=== PATIENT | female | born 1995 | race Caucasian/White ===

== ENCOUNTER 2017-06-30 10:39 | Outpatient (CLI) | payer OTHER ==
--- NOTE | 2017-06-30 12:09 | ULT ---
ULTRASOUND OB COMPLETE STANDARD: HISTORY: followup. COMPARISON: None. FINDINGS: Single viable intrauterine with average ultrasound age 22 weeks 3 days, estimated date of d elivery is 10/24/17. This is concordant with the clinical age. Estimated weight is 1 pound 4 ounces, 71st percentile. Biparietal diameter: 22 weeks 6 days, 5.82 cm. Head circumference: 22 weeks 3 days, 21.2 cm. Abdominal circumference: 22 weeks 6 days, 17.9 cm. Femur length: 23 weeks 2 days, 4.11 cm. The lateral ventricles, sternum, cerebellum, spine, sacrum, 4-chamber heart, stomach, kidneys, and ce rebellum are normal. The nose and lips are not well seen. The color Doppler measurement peak systolic velocity 22.9 cm/s. End-diastolic velocity 8.8 cm/s, sys tolic/diastolic ratio 0.6. Placenta is anterior. The position is vertex. Cervix is not well seen. The heart rate is documented at 175 b.p.m. IMPRESSION: Single viable intrauterine with average ultrasound age 22 week 3 days with estimated date o f delivery 10/24/17. The biometry appears normal as well as the survey. POS: [facility]
== END 2017-06-30 10:40 | disposition home or self-care (01) ==
LOC: ULT 10:39
PROVIDERS: ATTEND Family Medicine
DX: Z34.92 Encounter for supervision of normal pregnancy, unspecified, second trimester (principal); Z3A.22 22 weeks gestation of pregnancy
CPT/HCPCS: 76805

== ENCOUNTER 2017-09-06 22:07 | Day surgery (SDC) | payer OTHER ==
[2017-09-06 22:45] VITALS: BMI 25.7
--- NOTE | 2017-09-06 23:10 | PDOC.LDHP ---
Labor and Delivery H&P Chief complaint: abdominal pain HPI: 22 y/o G1 at 31w4d, patient of Andrew Singh, presents with abdominal pain worsening over the last 2 days. Unsure if contractions or other type of pain but feels occasional, irregular tightening. +dysuria, frequency, urgency. Denies VB, LOF, or decreased FM. ROS neg for HEENT, CV, pulm, GI, , neuro, psych, skin, musculoskeletal, or constitutional symptoms other than mentioned above. OB History Details: First Past Medical History: None Current medications: pre-dejan vitamins Previous surgical history: none Allergies/Adverse Reactions: Allergies Allergy/AdvReac Type Severity Reaction Status Date / Time No Known Allergies Allergy Verified 09/06/17 22:40 Social history: none - Physical Exam Vital signs reviewed and normal: yes General: NAD, resting Lungs: nonlabored breathing Abdomen: gravid Extremeties: no edema FHT: category 1 (130s, mod variability, + accels, no decels) Holiday contractions every: irregular, q 8-12 mins - Vaginal Exam cm dilated: 0 Effacement: 25% Station: -3 - OB Labs Additional Labs: Laboratory Tests 09/06/17 09/06/17 23:25 23:25 Urine Color YELLOW Urine Clarity CLEAR Urine pH 6.5 Ur Specific Duarte 1.014 Urine Protein Negative Urine Glucose (UA) Negative Urine Ketones Negative Urine Blood Moderate H Urine Nitrite Negative Urine Bilirubin Negative Urine Urobilinogen 1.0 Ur Leukocyte Esterase Negative Urine RBC 11-20 H Urine WBC 0-3 Ur Squamous Epith Cells 0-3 Urine Bacteria None Seen Hyaline Casts 0-3 HYALINE CAST Fibronectin Negative fibronectin negative - Assessment 22 y/o G1 at 31w4d with no e/o PTL or UTI. status reassuring with reactive NST. - Plan -: D/c home with precautions. Advised to stay well hydrated and keep appointment for tomorrow morning.
[2017-09-06 23:36] LABS: Bilirubin Negative (Negative); Blood, Urine Moderate (Negative); Clarity CLEAR (Clear); Glucose, Urine (Dipstick) Negative (Negative); Leukocyte Negative (Negative); Nitrite Negative (Negative); Protein, Urine (Dipstick) Negative (Neg-Trace); Specific Gravity, Urine 1.014 (1.002-1.036); pH, Urine 6.5 (5.0-9.0)
[2017-09-06 23:38] LABS: Bacteria/HPF None Seen HPF (None Seen); Hyaline Casts/LPF 0-3 HYALINE CAST LPF (0-3 Hyaline); Pathc Cast-AUWi Flag 0.13 (0-2.49); Squamous Epithelial 0-3 HPF (0-3); WBC/HPF 0-3 HPF (0-3)
[2017-09-06 23:53] LABS: FFN Internal QC Analyzer PASS (PASS); FFN Internal QC Cassette PASS (PASS); Fetal Fibronectin Negative (Negative)
[2017-09-07] MEDS ORDERED: FLU VACC QS2017-18 36 mo. & older 0.5 ML SYRINGE IM ONE (09:00)
== END 2017-09-07 00:20 | disposition home or self-care (01) ==
LOC: L&D/OP 22:07 → ER/OP 09-07 00:20
PROVIDERS: ATTEND Family Medicine
DX: O99.89 Other specified diseases and conditions complicating pregnancy, childbirth and the puerperium (principal); R10.9 Unspecified abdominal pain; Z79.899 Other long term (current) drug therapy; Z3A.31 31 weeks gestation of pregnancy
CPT/HCPCS: 51701; 81001; 82731; 87086; 99283

== ENCOUNTER 2017-09-23 20:54 | Emergency (ER) | payer OTHER ==
--- NOTE | 2017-09-23 22:45 | ULT ---
DOPPLER VENOUS ULTRASOUND OF BOTH LOWER EXTREMITIES 09/23/17 INDICATION: Right lower extremity swelling with chest pain with history of 34 week . TECHNIQUE: Yost scale, color doppler and vascular duplex with spectral analysis was performed of the deep venous structures of both lower extremity. Common femoral vein, superficial femoral vein, popliteal vein, p osterior tibial vein, proximal greater saphenous and profunda veins were assessed. FINDINGS: There is no evidence of DVT within both lower extremities. There is normal compression, flow, and aug mentation seen within the deep venous structures of both lower extremities. IMPRESSION: No evidence of DVT within both lower extremity. POS: [facility]
== END 2017-09-23 22:45 | disposition home or self-care (01) ==
LOC: SCSER 20:54
DX: O99.89 Other specified diseases and conditions complicating pregnancy, childbirth and the puerperium (principal); R07.81 Pleurodynia; Z3A.34 34 weeks gestation of pregnancy
CPT/HCPCS: 93005; 93970

== ENCOUNTER 2017-10-22 08:02 | Inpatient (IN) | payer OTHER ==
[2017-10-22 09:01] LABS: Amnisure Test RUPTURE DETECTED (No Rupture)
[2017-10-22 09:02] LABS: Amnisure Internal Control QC ACCEPTABLE (ACCEPTABLE)
[2017-10-22] MEDS ORDERED: Lidocaine 1% (PF) 30 ML VIAL SC PRN (09:35)
[2017-10-22] MEDS ORDERED: HYDROcodone/Acetaminophen 5/325 mg Tablet PO PRN ×2 (09:35)
[2017-10-22] MEDS ORDERED: LR / Pitocin 40 units/1000 ml 1,000 ML IV PRN (09:35)
[2017-10-22] MEDS ORDERED: Ibuprofen 800 MG TAB PO PRN (09:35)
[2017-10-22] MEDS ORDERED: Ondansetron HCl/PF 4 MG/2 ML Vial IVP PRN ×3 (09:35→21:52)
[2017-10-22 09:39] VITALS: BMI 27.3
[2017-10-22] MEDS: Lactated Ringer's 1,000 ML IV SCH ×2 (09:40→15:22)
[2017-10-22] MEDS ORDERED: Lactated Ringer's 1,000 ML IV SCH (09:45)
[2017-10-22 09:51] LABS: Hemoglobin 13.3 g/dL (12.0-16.0); Mean Corpuscular HGB CONC 35.3 g/dL (32.0-36.0); Mean Corpuscular Hemoglobin 31.9 pg (25.0-35.0); Mean Corpuscular Volume 90.4 fl (77.0-87.0); Mean Platelet Volume 7.3 fL (7.4-10.4); Platelet Count 217 thou/uL (130-400); RBC Distribution Width 12.1 % (11.5-14.5); Red Blood Cell (RBC) Count 4.16 mill/uL (4.00-5.20); White Blood Cell (WBC) Count 17.9 thou/uL (4.8-10.8)
[2017-10-22] MEDS ORDERED: DISCONTINUE ALL PREVIOUS NARCOTICS FS SCH (10:15)
[2017-10-22] MEDS ORDERED: Bupivacaine 0.5% 20 ML, fentaNYL Citrate/PF 400 MCG in Sodium Chloride 0.9% 72 ML EPIDURAL SCH (10:15)
[2017-10-22] MEDS ORDERED: LR 500 ML/Oxytocin 10 units 500 ML IV SCH (10:15)
[2017-10-22 10:31] LABS: HBSAg Index 0.22 S/CO (0-0.99); Hep B Surf Ag Non-Reactive S/CO (NonReactive); Syphilis Antibody Nonreactive (Nonreactive); Syphilis Antibody Index 0.03 S/CO (<1.00 Non-Reactive)
[2017-10-22] MEDS ORDERED: Bupivacaine/Epinephrine 0.25% 30 ML VIAL ONE (11:11)
[2017-10-22] MEDS ORDERED: Acetaminophen 325 MG TAB PO PRN (12:24)
[2017-10-22] MEDS ORDERED: Lactated Ringer's 500 ML IV PRN (12:24)
[2017-10-22] MEDS ORDERED: Eucerin (Mineral Oil/Petrolatum,White) 30 gm Jar TOP PRN (12:24)
[2017-10-22] MEDS ORDERED: Naloxone HCl 0.4 mg/ml Vial IVP PRN ×2 (12:24)
[2017-10-22] MEDS ORDERED: ePHEDrine/0.9% NaCl/PF SYRINGE 50 mg/10 ml SLOW IVP PRN (12:24)
[2017-10-22] MEDS ORDERED: diphenhydrAMINE 50 MG/ML VIAL IVP PRN (12:24)
[2017-10-22] MEDS ORDERED: Promethazine HCl 25 MG/ML VIAL IM PRN (12:24)
[2017-10-22] MEDS ORDERED: Fentanyl 4mcg/Marcaine 0.1% Cassette 100 ML EPIDURAL SCH (12:30)
[2017-10-22] MEDS ORDERED: Communication Order-Pharmacy FS SCH (12:30)
[2017-10-22] MEDS ORDERED: diphenhydrAMINE 25 MG CAP PO PRN (21:52)
[2017-10-22] MEDS ORDERED: Milk Of Magnesia 30 ML UDCUP PO PRN (21:52)
[2017-10-22] MEDS ORDERED: Lanolin Ointment 7 GM TUBE TOP PRN (21:52)
[2017-10-22] MEDS ORDERED: LR / Pitocin 40 units/1000 ml 1,000 ML IV SCH (21:52)
[2017-10-22] MEDS ORDERED: traMADol HCl 50 MG TAB PO PRN (21:52)
[2017-10-22] MEDS ORDERED: Preparation H Ointment 28 GM TUBE PR PRN (21:52)
[2017-10-22] MEDS ORDERED: Benzocaine/Menthol 20-0.5% 60 ML CAN TOP PRN (21:52)
[2017-10-22] MEDS ORDERED: Acetaminophen/Codeine 30-300mg Tablet PO PRN (21:52)
[2017-10-22] MEDS ORDERED: Bisacodyl 10 MG SUPP PR PRN (21:52)
[2017-10-22] MEDS ORDERED: Docusate Calcium (SURFAK) 240 MG CAP PO SCH (22:00)
[2017-10-22] MEDS: Ibuprofen 800 MG TAB PO SCH (22:58)
[2017-10-22] MEDS: Docusate Calcium (SURFAK) 240 MG CAP PO SCH (22:58)
[2017-10-23] MEDS: HYDROcodone/Acetaminophen 5/325 mg Tablet PO PRN ×4 (00:16→21:16)
[2017-10-23] MEDS: Ibuprofen 800 MG TAB PO SCH ×3 (05:38→20:58)
[2017-10-23] MEDS: Ferrous Sulfate 325 MG TAB PO SCH ×2 (09:02→17:13)
[2017-10-23] MEDS: Docusate Calcium (SURFAK) 240 MG CAP PO SCH ×2 (10:32→20:58)
[2017-10-23] MEDS: Prenatal Vitamin 1 TAB PO SCH (10:32)
--- NOTE | 2017-10-23 19:26 | RAD ---
SACRUM AND COCCYX THREE VIEWS: History: Tailbone pain after delivery. FINDINGS/IMPRESSION: No fracture, dislocation, or bony destruction is seen. POS: [facility]
[2017-10-24] MEDS: Ibuprofen 800 MG TAB PO SCH ×2 (05:19→13:14)
[2017-10-24] MEDS: HYDROcodone/Acetaminophen 5/325 mg Tablet PO PRN ×2 (05:21→13:14)
[2017-10-24] MEDS: Prenatal Vitamin 1 TAB PO SCH (09:09)
[2017-10-24] MEDS: Docusate Calcium (SURFAK) 240 MG CAP PO SCH (09:09)
[2017-10-24] MEDS: Ferrous Sulfate 325 MG TAB PO SCH (09:10)
[2017-10-24 11:58] VITALS: BP 125/71; TEMP 99
--- NOTE | 2017-10-25 13:47 | HP ---
DATE OF ADMISSION: 10/22/2017 ADMISSION DIAGNOSIS: A 38-week 1-day intrauterine with spontaneous rupture of membranes an d early like. HISTORY OF PRESENT ILLNESS: Lluvia is a 22-year-old white female G2, P0, with an EDC of 11/04/2017 ba sed on a 6-week ultrasound, followed up in my office for care, which has been uncomplicated, who presented to Labor and Delivery on 10/22/2017 with complaints of leaking fluid. Note, she had a very small amount of fluid leaking not needing to wear a pad over the past 2 days. Noted that she h ad had an exam in my office on 10/20/2017 where she was noted on exam to be 2 cm dilated and 70% effa lorena. The patient had been having irregular contractions since that time. PAST MEDICAL HISTORY: Without surgeries or hospitalizations. Noted 1 previous spontaneous AB, 2013. CURRENT MEDICATIONS: The patient is taking vitamins. ALLERGIES: She has no known drug allergies. FAMILY HISTORY: Insignificant. SOCIAL HISTORY: Single with father of baby involved. No tobacco. HISTORY: Significant for Rh negative and received RhoGAM. Noted on exam a positive AmniSure. Patient was with cervix 2 cm with some irregular contractions. T he patient initially assessed by OB hospitalist with decision made to admit at 38 weeks 1 day with sp ontaneous rupture of membranes and Pitocin for augmentation.
== END 2017-10-24 13:27 | disposition home or self-care (01) | DRG 775 ==
LOC: L&D/OP 08:02 → L&D 15:21 → 3SW 21:25
PROVIDERS: ADMIT Family Medicine; ATTEND Family Medicine
PROC: 10E0XZZ Delivery of Products of Conception, External Approach (ICD-10-PCS; principal; 2017-10-22)
DX: O70.0 First degree perineal laceration during delivery (principal); Z37.0 Single live birth; Z3A.39 39 weeks gestation of pregnancy
CPT/HCPCS: 51702; 72220; 84112; 85027; 86780; 87340; 99285; G8978-GP-CI; G8979-GP-CI; G8980-GP-CI; J2001; J3010; J3490; J7050; J7120